=== PATIENT | male | born 1995 | race Caucasian/White ===

== ENCOUNTER 2018-04-01 19:01 | Emergency (ER) | payer OTHER ==
[~2018-04-01] VITALS: Ht 165.1 cm; Wt 68.6 kg
[~2018-04-01 19:01] MED LIST: ALBU8.5H8 INH; AZIT250T PO; PRED20TA PO
[2018-04-01 19:07] VITALS: Ht 165.1 cm; Wt 68.6 kg
[2018-04-01] MEDS ORDERED: HYDROCODONE/APAP (5/325) TAB PO ONE (21:30)
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
[2018-04-01] MEDS ORDERED: TRAM50TA2 PO (22:23)
[2018-04-01] MEDS ORDERED: IBUP800T48 PO (22:23)
[2018-04-01 22:33] VITALS: BP 105/64; PULSE 67; RESP 16
== END 2018-04-01 22:35 | disposition home or self-care (01) ==
LOC: FTE 19:01
DX: S05.12XA Contusion of eyeball and orbital tissues, left eye, initial encounter (principal); S39.92XA Unspecified injury of lower back, initial encounter; Y04.8XXA Assault by other bodily force, initial encounter
CPT/HCPCS: 70450; 70486; 72100; Z7502; Z7610